=== PATIENT | female | born 1955 | race Caucasian/White ===

== ENCOUNTER 2022-01-01 18:52 | Inpatient (IN) | payer BC ==
[~2022-01-01] VITALS: Ht 154.9 cm; Wt 64.9 kg
[2022-01-01] MEDS ORDERED: ALBUTEROL (0.083%) 2.5MG/3ML NEB HHN STA (18:54)
[2022-01-01] MEDS ORDERED: IPRATROPIUM BROMIDE (0.02%) 0.5MG/2.5ML NEB HHN STA (18:54)
[2022-01-01] MEDS ORDERED: ONDANSETRON HCL 4MG/2ML INJ IV ONE (19:00)
[2022-01-01] MEDS ORDERED: DEXAMETHASONE 10 MG/ML VIAL IV ONE (19:00)
[2022-01-01 19:21] LABS: BASOPHILS % 0.9 % (0.0-2.0); EOSINOPHILS % 2.4 % (0.0-5.0); HEMATOCRIT. 46.4 % (36.0-48.0); HEMOGLOBIN. 15.1 g/dL (12.0-16.0); LYMPHOCYTES % 40.9 % (20.0-50.0); MEAN CORPUSCULAR HEMOGLOBIN 29.9 pg (28.0-32.0); MEAN CORPUSCULAR VOLUME 91.7 fL (81.0-99.0); MEAN PLATELET VOLUME 9.6 fl (7.4-10.4); MONOCYTES % 5.8 % (2.0-8.0); PLATELET 330 x1000/uL (130-400); RED BLOOD CELL COUNT 5.06 mill/uL (4.2-5.4); RED CELL DISTRIBUTION WIDTH 14.4 % (11.6-14.6)
[2022-01-01 19:53] LABS: CHLORIDE 100 mEq/L (98-107)
[2022-01-01 20:06] LABS: CREATINE KINASE 322 IU/L (26-192); ETHANOL BLOOD < 10 mg/dL
[2022-01-01 20:23] LABS: BG BASE EXCESS -4.6 mmol/L (-2.0-2.0); BG CARBOXYHEMOGLOBIN 0.7 % (0.5-1.5); BG DEOXYHEMOGLOBIN 0.6 % (0.0-5.0); BG FRACTION INSPIRED OXYGEN 100; BG HCO3 ACT 20.2 mmol/L (22.0-26.0); BG METHEMOGLOBIN 0.3 % (0.0-1.5); BG OXYGEN SATURATION 99.4 % (92.0-98.5); BG OXYHEMOGLOBIN 98.4 % (94.0-97.0); BG PCO2 36.5 mmHg (35.0-45.0); BG PO2 185.5 mmHg (75.0-100.0); BG SAMPLE SITE RIGHT RADIAL; BG TOTAL HEMOGLOBIN 15.1 g/dL (12.0-18.0); BG TOTAL RESPIRATORY RATE 30 b/min; BG VENT MODE MASK - BIPAP
[2022-01-01 20:30] LABS: PROTHROMBIN TIME 10.5 sec (9.6-11.0)
[2022-01-01] MEDS ORDERED: FUROSEMIDE 40MG/4ML VIAL IV NR (20:30)
[2022-01-01] MEDS ORDERED: ASPIRIN 325MG EC TABLET PO NR (20:30)
[2022-01-01] MEDS ORDERED: ENOXAPARIN 60MG/0.6ML SYR SUBCUT NR (20:30)
[2022-01-01] MEDS ORDERED: NITROGLYCERIN OINT 1GM/INCH UDPKT TD NR (20:45)
[2022-01-01] MEDS ORDERED: ALBUTEROL (0.083%) 2.5MG/3ML NEB ONE (20:58)
[2022-01-01] MEDS ORDERED: IPRATROPIUM BROMIDE (0.02%) 0.5MG/2.5ML NEB ONE (20:59)
[2022-01-01] MEDS ORDERED: LORAZEPAM 2MG/ML CPJ IV ONE (21:00)
[2022-01-01] MEDS ORDERED: KETOROLAC 15MG/ML VIAL IV PRN (21:45)
[2022-01-01] MEDS ORDERED: IPRATROPIUM/ALBUTEROL 0.5-3(2.5)MG/3ML NEB NEB PRN (21:45)
[2022-01-01] MEDS ORDERED: MAGNESIUM/ALUMINUM HYDROXIDE/SIMETHICONE 30ML UDC PO PRN (21:45)
[2022-01-01] MEDS ORDERED: ONDANSETRON HCL 4MG/2ML INJ IV PRN (21:45)
[2022-01-01] MEDS ORDERED: ACETAMINOPHEN 325MG TABLET PO PRN (21:45)
[2022-01-01] MEDS ORDERED: DOCUSATE SODIUM 100MG CAPSULE PO PRN (21:45)
[2022-01-01] MEDS ORDERED: GUAIFENESIN 200MG/10ML SUGAR FREE UDC PO PRN (21:45)
[2022-01-01] MEDS ORDERED: DEXTROSE 50% WATER 50ML SYRINGE IV PRN (21:45)
[2022-01-01] MEDS ORDERED: NITROGLYCERIN 0.4MG TABLET SL SL PRN (21:45)
[2022-01-01] MEDS ORDERED: ZOLPIDEM TARTRATE 5MG TABLET PO PRN (21:45)
[2022-01-01] MEDS ORDERED: CLONIDINE 0.1MG TABLET PO PRN (21:45)
[2022-01-01] MEDS: GUAIFENESIN/DM 600MG/30MG ER TAB 12HR PO SCH (21:45)
[2022-01-01] MEDS ORDERED: LEVOFLOXACIN 500MG PREMIX 100 ML IV SCH (22:30)
[2022-01-01] MEDS: AZITHROMYCIN 500 MG in DEXT 5% WATER 250 ML IV SCH (22:38)
[2022-01-01 22:42] LABS: T4 FREE 1.18 ng/dL (0.76-1.46)
[2022-01-01 22:45] LABS: CLARITY URINE CLEAR (CLEAR); COLOR URINE YELLOW (YELLOW); KETONES URINE NEGATIVE (NEGATIVE); LEUKOCYTE ESTERASE URINE NEGATIVE (NEGATIVE); NITRITE URINE NEGATIVE (NEGATIVE); OCCULT BLOOD URINE NEGATIVE (NEGATIVE); PH URINE 5.5 (4.5-8.0); PROTEIN URINE TRACE (NEGATIVE); SPECIFIC GRAVITY URINE 1.014 (1.005-1.030); UROBILINOGEN URINE 0.2 E.U./dL (0.2-1.0)
[2022-01-01] MEDS: AZTREONAM 1 G in DEXTROSE 5% WATER 50 ML IV SCH (22:46)
[2022-01-01 22:59] LABS: *AMPHETAMINES SCREEN URINE NEGATIVE (NEGATIVE); *BARBITURATES SCREEN URINE NEGATIVE (NEGATIVE); *BENZODIAZEPINES SCREEN URINE NEGATIVE (NEGATIVE); *COCAINE SCREEN URINE NEGATIVE (NEGATIVE); CANNABINOID URINE SCREEN NEGATIVE (NEGATIVE); METHADONE URINE SCREEN NEGATIVE (NEGATIVE); OPIATES URINE SCREEN NEGATIVE (NEGATIVE); PHENCYCLIDINE URINE SCREEN NEGATIVE (NEGATIVE)
[2022-01-01 23:06] LABS: VITAMIN B12 SERUM 841 pg/mL (211-911)
[2022-01-02] VITALS (10 sets, daily range): BP systolic 111–149; BP diastolic 62–80
[2022-01-02] MEDS: AZITHROMYCIN 500 MG in DEXT 5% WATER 250 ML IV SCH ×2 (00:56→22:31)
[2022-01-02] MEDS ORDERED: LEVO100T MT (01:29)
[2022-01-02] MEDS ORDERED: LEVO100T PO (01:29)
[2022-01-02] MEDS ORDERED: CALC-26 MT (01:33)
[2022-01-02] MEDS ORDERED: CARV3.1242 PO (01:33)
[2022-01-02 02:27] LABS: CREATINE KINASE MB FRACTION 19.6 ng/mL (0.5-3.6)
[2022-01-02 06:28] LABS: CHLORIDE 101 mEq/L (98-107)
[2022-01-02 06:38] LABS: CREATINE KINASE MB FRACTION 27.6 ng/mL (0.5-3.6)
[2022-01-02 06:43] LABS: PHOSPHORUS 4.2 mg/dL (2.5-4.9)
[2022-01-02] MEDS: BLOOD SUGAR DIAGNOSTIC STRIP TEST SCH ×4 (07:30→21:04)
[2022-01-02 07:34] LABS: HEMATOCRIT. 39.8 % (36.0-48.0); HEMOGLOBIN. 13.1 g/dL (12.0-16.0); MEAN CORPUSCULAR HEMOGLOBIN 29.5 pg (28.0-32.0); MEAN CORPUSCULAR VOLUME 89.2 fL (81.0-99.0); MEAN PLATELET VOLUME 9.1 fl (7.4-10.4); PLATELET 303 x1000/uL (130-400); RED BLOOD CELL COUNT 4.46 mill/uL (4.2-5.4); RED CELL DISTRIBUTION WIDTH 14.1 % (11.6-14.6)
[2022-01-02] MEDS: INSULIN LISPRO 100 UNITS/ML SUBCUT SCH ×4 (08:00→21:00)
[2022-01-02 08:28] LABS: PLATELET ESTIMATE NORMAL
[2022-01-02] MEDS ORDERED: CEFTRIAXONE 1 G PREMIX 50 ML IV SCH (09:00)
[2022-01-02] MEDS ORDERED: SPIRONOLACTONE 25MG TABLET PO SCH (09:00)
[2022-01-02] MEDS ORDERED: AMLODIPINE 10MG TABLET PO SCH (09:00)
[2022-01-02] MEDS ORDERED: ENOXAPARIN 80MG/0.8ML SYR SUBCUT SCH (09:00)
[2022-01-02] MEDS: ZINC SULFATE 220 MG ( 50 ) CAPSULE PO SCH (09:44)
[2022-01-02] MEDS: GUAIFENESIN/DM 600MG/30MG ER TAB 12HR PO SCH ×2 (09:45→21:01)
[2022-01-02] MEDS: ASCORBIC ACID 500 MG TABLET PO SCH ×2 (09:45→21:01)
[2022-01-02] MEDS: FAMOTIDINE 20MG TABLET PO SCH (09:50)
[2022-01-02] MEDS: AZTREONAM 1 G in DEXTROSE 5% WATER 50 ML IV SCH (10:09)
[2022-01-02] MEDS: NITROGLYCERIN OINT 1GM/INCH UDPKT TD SCH ×2 (11:22→21:03)
[2022-01-02] MEDS ORDERED: LIDOCAINE HCL/PF 2% 20MG/ML 5 ML/VIAL ONE (13:26)
[2022-01-02] MEDS ORDERED: IODIXANOL 320MG/ML 100 ML BOTTLE IV ONE (13:26)
[2022-01-02] MEDS ORDERED: FENTANYL CITRATE/PF 50MCG/ML 2ML VIAL ONE (14:07)
[2022-01-02] MEDS ORDERED: MIDAZOLAM HCL 2 MG/2 ML VIAL ONE (14:07)
[2022-01-02] MEDS ORDERED: HEPARIN SODIUM 1,000 UNIT/1ML VIAL IV ONE (14:12)
[2022-01-02] MEDS ORDERED: METOPROLOL TARTRATE 5MG/5ML VIAL IV ONE (14:25)
[2022-01-02] MEDS ORDERED: ACETAMINOPHEN 325MG TABLET PO PRN (15:00)
[2022-01-02] MEDS ORDERED: ATROPINE SULFATE 1MG/10ML SYR IV PRN (15:00)
[2022-01-02] MEDS: AMLODIPINE 2.5MG TABLET PO SCH (17:35)
[2022-01-02] MEDS: SODIUM CHLORIDE 0.45% 1,000 ML IV SCH ×2 (17:36→23:34)
[2022-01-02] MEDS ORDERED: SODIUM CHLORIDE 10% FOR INH 15ML VIAL NEB INH NR (21:00)
[2022-01-02] MEDS ORDERED: ENOXAPARIN 30MG/0.3ML SYR SUBCUT SCH (21:00)
[2022-01-02] MEDS: ATORVASTATIN CALCIUM 10MG TABLET PO SCH (21:01)
[2022-01-02] MEDS: LEVOFLOXACIN 250MG PREMIX 50 ML IV SCH (22:31)
[2022-01-03] VITALS (8 sets, daily range): BP systolic 93–167; BP diastolic 52–85
[2022-01-03] MEDS: NITROGLYCERIN OINT 1GM/INCH UDPKT TD SCH ×3 (05:33→22:01)
[2022-01-03] MEDS: BLOOD SUGAR DIAGNOSTIC STRIP TEST SCH ×4 (05:57→21:35)
[2022-01-03] MEDS: INSULIN LISPRO 100 UNITS/ML SUBCUT SCH ×4 (07:20→21:45)
[2022-01-03 07:50] LABS: BASOPHILS % 0.4 % (0.0-2.0); EOSINOPHILS % 0.5 % (0.0-5.0); HEMATOCRIT. 33.9 % (36.0-48.0); HEMOGLOBIN. 11.3 g/dL (12.0-16.0); MEAN CORPUSCULAR HEMOGLOBIN 29.8 pg (28.0-32.0); MEAN CORPUSCULAR VOLUME 89.1 fL (81.0-99.0); MONOCYTES % 5.4 % (2.0-8.0); NEUTROPHILS % 83.7 % (40.0-76.0); RED CELL DISTRIBUTION WIDTH 14.2 % (11.6-14.6)
[2022-01-03] MEDS: ASPIRIN 81MG EC TABLET PO SCH (08:15)
[2022-01-03] MEDS: ZINC SULFATE 220 MG ( 50 ) CAPSULE PO SCH (08:15)
[2022-01-03] MEDS: ASCORBIC ACID 500 MG TABLET PO SCH ×2 (08:15→22:01)
[2022-01-03] MEDS: AMLODIPINE 2.5MG TABLET PO SCH ×2 (08:15→17:53)
[2022-01-03] MEDS: FAMOTIDINE 20MG TABLET PO SCH (08:16)
[2022-01-03] MEDS: ENOXAPARIN 80MG/0.8ML SYR SUBCUT SCH (08:24)
[2022-01-03] MEDS: SODIUM CHLORIDE 0.45% 1,000 ML IV SCH ×2 (08:26→22:08)
[2022-01-03 09:17] LABS: PHOSPHORUS 2.6 mg/dL (2.5-4.9)
[2022-01-03 10:30] LABS: PLATELET 231 x1000/uL (130-400)
[2022-01-03] MEDS ORDERED: LEVOFLOXACIN 750MG PREMIX 150 ML IV SCH (12:00)
[2022-01-03] MEDS: GUAIFENESIN/DM 600MG/30MG ER TAB 12HR PO SCH ×2 (13:58→22:01)
[2022-01-03] MEDS: ACETAMINOPHEN 325MG TABLET PO PRN (16:33)
[2022-01-03] MEDS: LEVOFLOXACIN 250MG PREMIX 50 ML IV SCH (22:00)
[2022-01-03] MEDS: ATORVASTATIN CALCIUM 10MG TABLET PO SCH (22:01)
[2022-01-04] VITALS (11 sets, daily range): BP systolic 114–137; BP diastolic 57–83
[2022-01-04] MEDS: ACETAMINOPHEN 325MG TABLET PO PRN ×3 (01:03→17:22)
[2022-01-04] MEDS: INSULIN LISPRO 100 UNITS/ML SUBCUT SCH ×4 (06:52→21:00)
[2022-01-04] MEDS: BLOOD SUGAR DIAGNOSTIC STRIP TEST SCH ×4 (06:52→21:00)
[2022-01-04] MEDS: NITROGLYCERIN OINT 1GM/INCH UDPKT TD SCH ×3 (07:20→21:38)
[2022-01-04 08:39] LABS: HEMATOCRIT 34.1 % (36.0-48.0); HEMOGLOBIN 11.2 g/dL (12.0-16.0); MEAN CORPUSCULAR HEMOGLOBIN 29.5 pg (28.0-32.0); MEAN CORPUSCULAR VOLUME 89.7 fL (81.0-99.0); PLATELET 241 x1000/uL (130-400); RED CELL DISTRIBUTION WIDTH 14.2 % (11.6-14.6)
[2022-01-04 08:58] LABS: PHOSPHORUS 2.6 mg/dL (2.5-4.9)
[2022-01-04] MEDS: ENOXAPARIN 80MG/0.8ML SYR SUBCUT SCH (09:34)
[2022-01-04] MEDS: ASCORBIC ACID 500 MG TABLET PO SCH ×2 (09:34→21:37)
[2022-01-04] MEDS: ZINC SULFATE 220 MG ( 50 ) CAPSULE PO SCH (09:34)
[2022-01-04] MEDS: AMLODIPINE 2.5MG TABLET PO SCH ×2 (09:34→17:22)
[2022-01-04] MEDS: FAMOTIDINE 20MG TABLET PO SCH (09:35)
[2022-01-04] MEDS: ASPIRIN 81MG EC TABLET PO SCH (09:39)
[2022-01-04] MEDS: GUAIFENESIN/DM 600MG/30MG ER TAB 12HR PO SCH ×2 (09:45→21:37)
[2022-01-04] MEDS: IPRATROPIUM/ALBUTEROL 0.5-3(2.5)MG/3ML NEB HHN PRN ×3 (10:51→21:06)
[2022-01-04] MEDS: SODIUM CHLORIDE 0.45% 1,000 ML IV SCH (18:46)
[2022-01-04] MEDS: LEVOFLOXACIN 250MG PREMIX 50 ML IV SCH (21:37)
[2022-01-04] MEDS: ATORVASTATIN CALCIUM 10MG TABLET PO SCH (21:37)
[2022-01-05] VITALS: BP 112/61
[2022-01-05 04:00] VITALS: BP 126/66
[2022-01-05] MEDS: NITROGLYCERIN OINT 1GM/INCH UDPKT TD SCH (06:08)
[2022-01-05] MEDS: SODIUM CHLORIDE 0.45% 1,000 ML IV SCH (06:08)
[2022-01-05] MEDS: BLOOD SUGAR DIAGNOSTIC STRIP TEST SCH (06:08)
[2022-01-05] MEDS: INSULIN LISPRO 100 UNITS/ML SUBCUT SCH (06:23)
[2022-01-05 06:24] LABS: HEMOGLOBIN 10.9 g/dL (12.0-16.0); MEAN CORPUSCULAR HEMOGLOBIN 29.3 pg (28.0-32.0); MEAN CORPUSCULAR VOLUME 88.5 fL (81.0-99.0); PLATELET 248 x1000/uL (130-400); RED BLOOD CELL COUNT 3.73 mill/uL (4.2-5.4); RED CELL DISTRIBUTION WIDTH 14.3 % (11.6-14.6)
[2022-01-05 06:42] LABS: PHOSPHORUS 2.6 mg/dL (2.5-4.9)
[2022-01-05 07:55] VITALS: BP 117/85
[2022-01-05] MEDS ORDERED: AMLO2.5T45 PO (08:20)
[2022-01-05] MEDS ORDERED: ATOR10TA PO (08:20)
[2022-01-05] MEDS ORDERED: ISOS20TA57 MT (08:20)
[2022-01-05] MEDS ORDERED: ASPI-1406 PO (08:20)
[2022-01-05] MEDS: IPRATROPIUM/ALBUTEROL 0.5-3(2.5)MG/3ML NEB HHN PRN (08:34)
[2022-01-05] MEDS: FAMOTIDINE 20MG TABLET PO SCH (09:37)
[2022-01-05] MEDS: AMLODIPINE 2.5MG TABLET PO SCH (09:37)
[2022-01-05] MEDS: GUAIFENESIN/DM 600MG/30MG ER TAB 12HR PO SCH (09:37)
[2022-01-05] MEDS: ASCORBIC ACID 500 MG TABLET PO SCH (09:37)
[2022-01-05] MEDS: ZINC SULFATE 220 MG ( 50 ) CAPSULE PO SCH (09:38)
[2022-01-05] MEDS: ENOXAPARIN 80MG/0.8ML SYR SUBCUT SCH (09:38)
[2022-01-05] MEDS: ASPIRIN 81MG EC TABLET PO SCH (09:38)
[2022-01-05 09:57] VITALS: BP 117/85
== END 2022-01-05 10:26 | disposition home or self-care (01) | DRG 871 ==
LOC: ER 18:52 → MICUSO 21:10 → SUPCPDRO 21:33 → ENRESERV 23:03 → 5EST 01-02 00:05 → 3WST 01-02 13:00
PROVIDERS: ADMIT Internal Medicine; ATTEND Internal Medicine
PROC: 5A09357 Assistance with Respiratory Ventilation, Less than 24 Consecutive Hours, Continuous Positive Airway Pressure (ICD-10-PCS; principal; 2022-01-01)
PROC: 4A023N7 Measurement of Cardiac Sampling and Pressure, Left Heart, Percutaneous Approach (ICD-10-PCS; 2022-01-02)
PROC: B2111ZZ Fluoroscopy of Multiple Coronary Arteries using Low Osmolar Contrast (ICD-10-PCS; 2022-01-02)
PROC: B2151ZZ Fluoroscopy of Left Heart using Low Osmolar Contrast (ICD-10-PCS; 2022-01-02)
DX: A41.9 Sepsis, unspecified organism (principal); I21.4 Non-ST elevation (NSTEMI) myocardial infarction; I50.43 Acute on chronic combined systolic (congestive) and diastolic (congestive) heart failure; J96.01 Acute respiratory failure with hypoxia; N17.0 Acute kidney failure with tubular necrosis; J18.9 Pneumonia, unspecified organism; E46 Unspecified protein-calorie malnutrition; I13.0 Hypertensive heart and chronic kidney disease with heart failure and stage 1 through stage 4 chronic kidney disease, or unspecified chronic kidney disease; I16.1 Hypertensive emergency; E87.1 Hypo-osmolality and hyponatremia; M62.82 Rhabdomyolysis; E87.20 Acidosis, unspecified; N18.9 Chronic kidney disease, unspecified; J45.909 Unspecified asthma, uncomplicated; E83.51 Hypocalcemia; B02.9 Zoster without complications; Z20.822 Contact with and (suspected) exposure to COVID-19; E66.9 Obesity, unspecified; E78.00 Pure hypercholesterolemia, unspecified; I44.7 Left bundle-branch block, unspecified; I25.10 Atherosclerotic heart disease of native coronary artery without angina pectoris; Z68.27 Body mass index [BMI] 27.0-27.9, adult; Z79.82 Long term (current) use of aspirin; Z90.81 Acquired absence of spleen
CPT/HCPCS: 36415; 36600; 71045; 71250; 76770; 80048; 80053; 80061; 80305; 80320; 81003; 82375; 82550; 82553; 82607; 82746; 82805; 82962; 83036; 83540; 83550; 83605; 83735; 83880; 84100; 84145; 84439; 84443; 84484; 85025; 85027; 85379; 87426; 87804; 93005; 93306; 93458; 93970; 94640; 94660; 97162; 99291; C1769; C1887; C1893; C9803; J0456; J1100; J1644; J1650; J1885; J1940; J1956; J2060; J2250; J2405; J3010; J3490; J7060; J7131; Q9967; G0480